=== PATIENT | female | born 1945 | race Caucasian/White ===

== ENCOUNTER 2018-11-11 08:41 | Inpatient (IN) | payer MEDICARE, BC ==
[~2018-11-11] VITALS: Ht 177.8 cm; Wt 72.7 kg
--- NOTE | ~2018-11-11 | CN ---
PATIENT NAME:JESSICA SINGER MEDICAL RECORD: [id number] : 49 LOCATION:.ER ADMIT DATE: ACCOUNT: [id number] CONSULTING PHYSICIAN: HENNY SERRANO MD REFERRING PHYSICIAN: SHWETA JIMENEZ MD DATE OF CONSULTATION: 11/11/2018 DIAGNOSES: 1. Angina. 2. Coronary artery disease. 3. Previous PTCA and stent. 4. Hypertension. 5. Hyperlipidemia. HISTORY OF PRESENT ILLNESS: Ms. Singer presents with a sudden onset of chest discomfort this morning. She has been having chest discomfort all morning. She continues to have chest discomfort just like that of her previous angina. She had a cardiac event in August in [place]. At that time, she underwent PTCA and stent of one vessel and they told her they tried to stent another vessel, but could not due to its small size. She had done well until this morning. Her chest pain is quite severe. PHYSICAL EXAMINATION: GENERAL APPEARANCE: Well-nourished, well-developed, appears stated age. Level of distress, comfortable. PSYCHIATRIC: Mental status, alert, normal affect. Orientation, oriented to time, place and person. EYES: Lids and conjunctiva, noninjected. No discharge, no pallor. ENT: Lips, teeth, gums, normal dentition. Oropharynx, no cyanosis, no pallor. NECK: Carotid arteries, bilateral normal upstroke, no bruits, no thrills. JUGULAR VEINS: No jugular venous pressure or distention. CERVICAL LYMPH NODES: Nontender, nonenlarged. THYROID: Not enlarged. Nontender. No nodules. LUNGS: Respiratory effort, unlabored. CHEST: Normal curvature. No thoracic deformity. No chest wall tenderness. Percussion, resonant. Auscultation, clear. No wheezes, no rales, no rhonchi. CARDIOVASCULAR: Precordial exam, nondisplaced. No heaves or pericardial thrills. Rate and rhythm, regular. Heart sounds, normal S1, normal S2. No S3, no gallop, no rub. Systolic murmur, not heard. Diastolic murmur, not heard. EXTREMITIES: No cyanosis, no edema. Peripheral pulses, full and equal in all extremities, except as noted. No bruits appreciated. ABDOMEN: Soft, nondistended. Normal aorta. No bruit. Nontender. No masses. Liver, nontender, no hepatomegaly. Spleen, nontender, no splenomegaly. MUSCULOSKELETAL: No joint tenderness. No joint swelling. No erythema. NEUROLOGICAL: Normal gait, normal strength, normal tone. SKIN: Warm and dry. OVERALL IMPRESSION: Unstable angina. We will proceed with coronary angiography. Further care depends upon findings of the angiography. TRANSINT:[id number] Voice Confirmation ID: [id number] DOCUMENT ID: [id number] CONSULT REPORT [id number] JESSICA SINGER JEFFREY MD CC: [id number] DICTATION DATE: 11/11/18 1126 DELI/BAKERY ASSOCIATE: 11/11/18 1134 [facility] [address] [id number]
--- NOTE | ~2018-11-11 | HEMODYNAMI ---
PATIENT:JESSICA MORELOS MEDICAL RECORD: [id number] : 49 LOCATION:[facility] DLuigiE09[facility]# [id number] ADMISSION DATE: 11/11/18 Generatedon:11/11/201815:05 Patient name: JESSICA MORELOS Patient #: [id number] SSN: : 1945 Date of study: 11/11/2018 Page: Of Hemodynamic Procedure Report Patient Data Patient Demographics Procedure consent was obtained First Name: JESSICA Gender: Female Last Name: TAMY : 1945 [facility] Initial: L Age: 73 year(s) Patient #: [id number] Race: Unknown Additional ID: [id number] Contact details Address: [address] [place] [address] State: [place] City: [place] Zip code: [address] Admission Admission Data Admission Date: 11/11/2018 Admission Time: 12:41 Room #: D.E09 Lab Results Lab Result Date: 11/11/2018 Lab Result Time: 0:00 Biochemistry Name Units Result Min Max BUN mg/dl 14 --(--*-)-- 7 18 Creatinine mg/dl 0.9 --(-*--)-- 0.6 1.3 CBC Name Units Result Min Max Hemoglobin g/dl 14 --(*---)-- 13.5 17.5 Procedure Procedure Types Cath Procedure Diagnostic Procedure LHC LHC w/Coronaries FFR/IVUS Intra-Coronary IVUS Initial Sedation Charges Moderate Sedation up to 15 minutes PCI Procedure Coronary Stent Coronary Stent Initial x2 Procedure Description Procedure Date Procedure Date: 11/11/2018 Procedure Start Time: 14:30 Procedure End Time: 14:57 Procedure Staff Name Function Derrick Joel RT Scrub Suha Ray RT Monitor Elver Samuels RN Generating Station Mechanic Gayathri Rodriguez RN Nurse Chan Dover MD Performing Physician Procedure Data Cath Procedure Fluoroscopy Diagnostic fluoroscopy Total fluoroscopy Time: 5.5 time: 5.5 min min Diagnostic fluoroscopy Total fluoroscopy dose: 602 dose: 602 mGy mGy Contrast Material Contrast Material Type Amount (ml) Isovue 300 170 Entry Location Entry Primary Successful Side Size Upsize Upsize Entry Closure Succes sful Closure Location (Fr) 1 (Fr) 2 (Fr) Remarks Device Remarks Femoral Right 5 Fr 6 Fr Exoseal artery Short Estimated blood loss: 5 ml Diagnostic catheters Device Type Used For End Catheter Placement MULTIPACK Pigtail 5 Fr LV Angiography catheter MULTIPACK JL 4.0 5Fr Left Coronary catheter Angiography MULTIPACK 3DRC 5Fr Right Coronary catheter Angiography Procedure Complications No complications Procedure Medications Medication Administration Route Dosage Oxygen etCO2 Nasal cannula 2 l/min Lidocaine 2% added to field 20 Heparin Flush Bag added to field 2 bags (1000units/500ml NS) 0.9% NaCl I.V. 100 ml/hr Versed I.V. 1 mg Fentanyl I.V. 50 mcg Heparin Bolus I.V. 4000 units Versed I.V. 1 mg Fentanyl I.V. 50 mcg Plavix P.O. 75 mg Hemodynamics Rest HGB: 14 (g/dl) Heart Rate: 55 (bpm) Pressure Samples Time Site Value (mmHg) Purpose Heart Use Rate(bpm) 14:34 LV 116/4,12 Snapshot 56 Snapshots Pre Cath Intra NCS Post Cath Vital Signs Time Heart Resp SPO2 etCO2 NIBP (mmHg) Rhythm Pain Sedation Rate (ipm) (%) (mmHg) Status Level (bpm) 14:11:29 54 17 98 0 138/69(116) NSR 0 (11) 10(A) , No pain 14:15:47 56 13 94 34.3 150/67(122) NSR 0 (11) 10(A) , No pain 14:20:58 53 14 98 36.5 141/60(114) NSR 0 (11) 10(A) , No pain 14:25:19 51 14 97 38.8 125/65(92) NSR 0 (11) 10(A) , No pain 14:29:33 52 24 96 38.1 128/61(97) NSR 0 (11) 10(A) , No pain 14:33:47 54 15 98 38.8 129/69(114) NSR 0 (11) 9(A) , No pain 14:38:01 61 14 98 38.8 145/69(124) NSR 0 (11) 9(A) , No pain 14:42:19 60 14 94 38 116/65(100) NSR 0 (11) 10(A) , No pain 14:46:29 64 12 95 36.5 127/63(109) NSR 0 (11) 9(A) , No pain 14:51:32 66 12 96 38.1 156/81(137) NSR 0 (11) 9(A) , No pain 14:55:54 61 21 96 36.6 165/75(117) NSR 0 (11) 10(A) , No pain Medications Time Medication Route Dose Verified Delivered Reason Notes Effectiveness by by 14:16:27 Oxygen etCO2 2 Chan Buffie used for Nasal l/min Stanislaw Rodriguez RN procedure cannula 14:16:33 Lidocaine 2% added 20ml Chan Chan for local to vial Stanislaw Dover MD anesthetic field 14:16:39 Heparin Flush added 2 Chan Chan used for Bag to bags Stanislaw Dover MD procedure (1000units/500ml field NS) 14:16:48 0.9% NaCl I.V. 100 Chan Buffie Per physician ml/hr Stanislaw Rodriguez RN 14:30:07 Fentanyl I.V. 50 Chan Zambranoie for sedation mcg Stanislaw Rodriguez RN 14:30:58 Versed I.V. 1 mg Chan Buffie for sedation Stanislaw Rodriguez RN 14:39:09 Heparin Bolus I.V. 4000 Chan Zambranoie for verif ied units Stanislaw Rodriguez RN anticoagulation with dr dover 14:40:48 Versed I.V. 1 mg Chan Zambranoie for sedation Stanislaw Rodriguez RN 14:40:52 Fentanyl I.V. 50 Chan Trinh for sedation mcg Stanislaw Rodriguez RN 14:56:13 Plavix P.O. 75 mg Chan Zambranoie for Stanislaw Rodriguez RN antiplatelet therapy Procedure Log Time Note 13:21:23 Elver Samuels RN sent for patient. Start room use. 13:21:24 Time tracking: Regular hours (M-F 7:00 - 5:00) 13:21:28 Plan of Care:Hemodynamics will remain stable., Cardiac rhythm will remain stable., Comfort level will be maintained., Respiratory function will remain adequate., Patient/ family verbilizes understanding of procedure., Procedure tolerated without complication., Recovers from procedure without complications.. 13:31: Lab Result : Hemoglobin 14 g/dl 13:: Lab Result : Creatinine 0.9 mg/dl :: Lab Result : BUN 14 mg/dl 14:04:12 Patient received from ED to CCL 2 Alert and oriented. Tansferred to table in Supine position. 14:04:13 Warm blankets applied, and lalo hugger turned on for patient comfort. 14:04:14 Correct patient and procedure confirmed by team. 14:04:15 Signed procedure consent form obtained from patient. 14:04:16 ECG and BP/O2 sat monitors applied to patient. 14:10:17 Vital chart was started 14:14:52 Baseline sample Acquired. 14:14:57 Rhythm: sinus rhythm 14:14:58 Full Disclosure recording started 14:15:03 H&P Date Dictated: 11/11/2018 New H&P dictated by physician.. 14:15:05 Pre-op teaching completed and patient verbalized understanding. 14:15:05 Pre-procedure instructions explained to patient. 14:15:06 Family in waiting room. 14:15:08 Patient NPO since Midnight. 14:15:09 Is the patient allergic to Iodine/contrast media? No. 14:15:10 Was the patient premedicated? No 14:15:11 Is patient on blood thinner?Yes 14:15:13 ACC The patient was administered the following blood thiners within the last 24 hours: ACCPlavix 14:16:27 Oxygen 2 l/min etCO2 Nasal cannula was administered by Gayathri Rodriguez RN; used for procedure; 14:16:33 Lidocaine 2% 20ml vial added to field was administered by Chan Dover MD; for local anesthetic; 14:16:39 Heparin Flush Bag (1000units/500ml NS) 2 bags added to field was administered by Chan Dover MD; used for procedure; 14:16:48 0.9% NaCl 100 ml/hr I.V. was administered by Gayathri Rodriguez RN; Per physician; 14:18:45 Patient diabetic? No. 14:18:48 Previous problem with sedation/anesthesia? No ? 14:18:51 Snore? Yes 14:18:52 Sleep apnea? No 14:18:53 Opens mouth fully? Yes 14:18:53 Deviated septum? No 14:18:55 Sticks out tongue? Yes 14:18:57 Airway obstruction? No ? 14:19:05 Dentures? No ? 14:19:09 Pre procedure: right dorsailis pedis pulse 2+ Normal; easily identifiable; not easily obliterated 14:19:12 Pre procedure: left dorsailis pedis pulse 2+ Normal; easily identifiable; not easily obliterated 14:19:15 Patient pain scale 0/10 ?. 14:19:26 IV patent on arrival in left antecubital with 0.9% NaCl at [facility]. 14:19:29 Lab results completed and on chart. 14:19:37 Right groin area was prepped with chlora-prep and draped in sterile fashion 14:19:38 Alarms reviewed by R. N. 14:19:39 Sharps counted by scrub and verified by R.N. 14:29:50 Physician arrived 14:29:51 Final Timeout: patient, procedure, and site verified with staff and physician. All members of the team are in agreement. 14::51 --------ALL STOP TIME OUT------ 14:29:53 Right groin site verified by team. 14:29:55 Physical assessment completed. ASA score P 2 - A patient with mild systemic disease as per Chan Dover MD. 14:29:59 Sedation plan: IV Moderate Sedation Medication:Versed, Fentanyl 14:30:07 Fentanyl 50 mcg I.V. was administered by Gayathri Rodriguez RN; for sedation; 14:30:29 Procedure started. 14:30:31 Local anesthetic to right femoral artery with Lidocaine 2% by Chan Dover MD.INITIAL ACCESS ONLY 14:30:38 Use device set Femoral Dx 14:30:39 Bag Decanter () opened to sterile field. 14:30:39 ACIST Syringe (44172) opened to sterile field. 14:30:40 Medline Cath Pack ([id number]) opened to sterile field. 14:30:41 DIAGNOSTIC WIRE .035 260cm J wire (505365) opened to sterile field. 14:30:42 ACIST Manifold (82418) opened to sterile field. 14:30:42 ACIST Hand Control (33384) opened to sterile field. 14:30:43 Tegaderm 4 x 4 (1626W) opened to sterile field. 14:30:43 DIAGNOSTIC Multipack 5Fr catheter set (FJ1053) opened to sterile field. 14:30:44 SHEATH 5FR [place] (RND698) opened to sterile field. 14:30:58 Versed 1 mg I.V. was administered by Gayathri Rodriguez RN; for sedation; 14:32:14 A 5 Fr sheath was inserted into the Right Femoral artery 14:32:27 A MULTIPACK Pigtail 5 Fr catheter was advanced over the wire and used for LV Angiography. 14:34:03 LV hemodynamics recorded. 14:34:04 LV gram done using GALVAN 14:34:07 Injector settings: Ml/sec: 5, Volume: 15, 14:34:13 EF : 40 % 14:34:33 Catheter removed. 14:34:37 A MULTIPACK JL 4.0 5Fr catheter was advanced over the wire and used for Left Coronary Angiography. 14:35:04 LCA angiography performed. 14:35:07 Injector settings: Ml/sec: 3, Volume: 6, 14:35:46 Catheter removed. 14:35:51 A MULTIPACK 3DRC 5Fr catheter was advanced over the wire and used for Right Coronary Angiography. 14:36:32 RCA angiography performed. 14:36:35 Injector settings: Ml/sec: 3, Volume: 6, 14:36:37 Catheter removed. 14:36:38 Proceeding to intervention. 14:37:17 GUIDE 6FR EBU 3.5 catheter ([id number]) opened to sterile field. 14:37:17 FIELDER XT 190cm guidewire ([id number]) opened to sterile field. 14:37:18 INFLATOR Merit BasixCompak (QU4235) opened to sterile field. 14:37:20 SHEATH 6FR [place] (NOB501) opened to sterile field. 14:38:28 Sheath upsized to a 6 Fr Short. 14:38:39 6 Fr ebu 3.5 guide catheter was inserted over the wire 14:38:45 fielder wire advanced. 14:38:46 Wire advanced across lesion. 14:39:09 Heparin Bolus 4000 units I.V. was administered by Gayathri Rodriguez RN; for anticoagulation; verified with dr dover 14:40:48 Versed 1 mg I.V. was administered by Gayathri Rodriguez RN; for sedation; 14:40:52 Fentanyl 50 mcg I.V. was administered by Gayathri Rodriguez RN; for sedation; 14:41:01 Place stent Inflation Number: 1 A LAVERNE RX 2.5 x 12 stent ([id number]) was prepped and advanced across the Mid LAD. The stent was deployed at 13 MURPHY for 0:10 (min:sec). 14:41:56 Stent catheter was removed intact over wire. 14:41:57 Wire removed. 14:43:46 Guide catheter removed. 14:43:54 Burson [place] Eagley[place] IVUS Catheter (22769N) opened to sterile field. 14:44:22 GUIDE 6FR AR 1.0 catheter ([id number]) opened to sterile field. 14:44:50 CHOICE PT Extra Support 182cm wire ([id number]) opened to sterile field. 14:44:57 6 Fr ar 1 guide catheter was inserted over the wire 14:45:03 choice pt wire advanced. 14:45:05 Wire advanced across lesion. 14:45:13 IVUS catheter advanced over wire. 14:47:08 IVUS pass to RCA lesion performed. 14:47:09 IVUS catheter removed over wire. 14:47:48 Place stent Inflation Number: 1 A LAVERNE RX 3.5 x 38 stent ([id number]) was prepped and advanced across the Mid RCA. The stent was deployed at 15 MURPHY for 0:10 (min:sec). 14:48:40 Stent catheter was removed intact over wire. 14:48:41 Guide catheter removed. 14:48:41 Wire removed. 14:49:28 EXOSEAL 6Fr (EX600) opened to sterile field. 14:49:42 Sheath removed intact; hemostasis achieved with Exoseal to the Right Femoral artery. 14:49:43 Procedure ended.(Physican Out) 14:49:59 Fluoroscopy time 05.50 minutes. 14:50:04 Fluoroscopy dose: 602 mGy 14:50:04 Flurop Dose total: 602 14:50:08 Contrast amount:Isovue 300 170ml. 14:50:13 Sharps counted by scrub and verified by R.N. 14:50:18 Post-op/insertion site Right Femoral artery dressed using a 4 x 4 and Tegaderm. 14:50:19 Insertion/operative site no bleeding no hematoma. 14:50:24 Post right femoral artery:stable 14:50:26 Post Procedure Pulses reassessed and unchanged 14:50:31 Post procedure rhythm: unchanged. 14:50:34 Estimated blood loss: 5 ml 14:50:35 Post procedure instruction explained to patient.Patient verbalizes understanding. 14:50:36 Patient needs reinforcement of post procedure teaching. 14:51:01 Procedure type changed to Cath procedure, Diagnostic procedure, LHC, LHC w/Coronaries, FFR/IVUS, Intra-Coronary IVUS Initial, Sedation Charges, Moderate Sedation up to 15 minutes, PCI procedure, Coronary Stent, Coronary Stent Initial x2 14:54:54 Procedure and supply charges have been captured, reviewed, submitted and are correct. 14:54:59 Procedure Complication : No complications 14:55:02 See physician's report for complete and final results. 14:55:02 Vital chart was stopped 14:56:13 Plavix 75 mg P.O. was administered by Gayathri Rodriguez RN; for antiplatelet therapy; 14:57:08 Report given to Pre/Post Procedure Room. 14:57:12 Patient transfered to Pre/Post Procedure Room with Stretcher. 14:57:14 Full Disclosure recording stopped 14:57:14 Procedure ended. 14:57:21 Femstop placed over the right femoral artery at 170 mmHg. Hemostasis achieved. 14:58:33 FEMSTOP Gold (R28644) opened to sterile field. 14:58:45 ACC-PCI Only Patient was given prescriptions, or instructed by Chan Dover MD to start/continue the following medications upon discharge: Plavix 14:58:48 End room use (Document Last) Intervention Summary Intervention Notes Time ActionType Lesion and Equipment Used Action# Pressure Duration Attributes 14:41:01 Place stent Mid LAD LAVERNE RX 2.5 x 1 13 00:10 12 stent ([id number]) 14:47:48 Place stent Mid RCA LAVERNE RX 3.5 x 1 15 00:10 38 stent ([id number]) Device Usage Item Name Manufacture Quantity Catalog Number Hospital Part Current M inimal Lot# / Charge Number Stock Stock Serial# Code ACIST Syringe Acist 1 90189 583811 919707 628632 2 0 () Shots Inc Bag Decanter Microtek 1 250676 34101 107648 5 (2002S) Medical Inc. Medline Cath Medline 1 [id number] 163978 16850 623812 5 Pack ([id number]) DIAGNOSTIC [place] 1 381200 299046 625304 418739 3 0 WIRE .035 260cm J wire (881287) ACIST Hand Acist 1 67322 993468 958392 906425 5 Control Medical (35290) Systems Inc ACIST Manifold Acist 1 21656 748591 410865 876779 5 (03523) Medical Systems Inc DIAGNOSTIC Cardinal 1 VL7497 962191 79497 148018 3 0 Multipack 5Fr Health catheter set (XA4270) Tegaderm 4 x 4 3M 1 1626W 130605 111470 221937 5 (1626W) SHEATH 5FR Terumo 1 [id number] 671332 369374 271435 5 [place] (WQS679) MULTIPACK Cardinal 1 331727 5 Pigtail 5 Fr Health catheter MULTIPACK JL Cardinal 1 993103 5 4.0 5Fr Health catheter MULTIPACK 3DRC Cardinal 1 654688 5 5Fr catheter Health FIELDER XT Nixon 1 [id number] 064454 59115 613250 5 190cm Vascular guidewire ([id number]) GUIDE 6FR EBU Medtronic 1 [id number] 756520 36221 646951 3 3.5 catheter ([id number]) INFLATOR Merit Merit 1 QT0520 479937 052252 954692 1 5 [employer] Medical (IR7044) SHEATH 6FR Terumo 1 WJS677 212117 825264 313414 4 0 [place] (QTX820) LAVERNE RX 2.5 x Medtronic 1 [id number] 742976 9366426 337945 5 [id number] 12 stent ([id number]) Burson Burson 1 [id number] 896054 369692 268928 8 [place] Eagleye IVUS Catheter (29449R) GUIDE 6FR AR Medtronic 1 [id number] 559573 71009 703092 1 1.0 catheter (IM2OG31) CHOICE PT [place] 1 [id number] 981885 111899 845532 5 Extra Support Scientific 182cm wire ([id number]) LAVERNE RX 3.5 x Medtronic 1 [id number] 233831 6583890 604574 5 [id number] 38 stent ([id number]) EXOSEAL 6Fr Cardinal 1 EX600 569372 410141 274475 1 0 (EX600) Health FEMSTOP Gold [place] 1 N61301 318988 273886 643921 5 ([id number]) Signature Audit [place] Stage Time Signature Unsigned Intra-Procedure 11/11/2018 Suha Ray RT(R) 3:03:39 PM RT(R) 11/11/2018 3:04:57 PM Intra-Procedure 11/11/2018 Suha Ray 3:05:12 PM RT(R) Signatures Monitor : Suha Ray RT Signature : Date : Time : [address] [place] [address]
--- NOTE | ~2018-11-11 | OP ---
PATIENT NAME: JESSICA MORELOS MEDICAL RECORD: [id number] :49 LOCATION:[facility] ADMISSION DATE:11/11/18 SURGEON: HENNY SERRANO MD DATE OF OPERATION: 11/11/2018 DATE OF SERVICE: 11/11/2017 PROCEDURES: 1. PTCA stent RCA. 2. PTCA stent LAD. 3. Intravascular ultrasound. 4. Left heart catheterization. 5. Selective coronary angiography. 6. Left ventriculogram. INDICATION: Angina and coronary artery disease. PROCEDURE IN DETAIL: After informed consent was obtained and after a detailed description of the risks, benefits as well as alternative therapies, the patient elected to proceed with angiogram and angioplasty. The right femoral area was prepped and draped in normal sterile fashion. Right femoral artery was cannulated via a modified Seldinger technique with placement of 6-Czech sheath. All catheters exchanged through this sheath. FINDINGS: Left ventriculogram was performed in standard 30-degree GALVAN view, reveals global hypokinesis throughout all segments. Overall ejection fraction in the 40% range. SELECTIVE CORONARY ANGIOGRAPHY: 1. Left main showed no significant angiographic disease. 2. Left anterior descending has 75% stenosis in the mid vessel. 3. Left circumflex is a extremely small ramus intermedius that has greater than 90% stenosis of the circumflex itself, has no significant disease. 4. The right coronary has a previously placed stent. Intravascular ultrasound reveals that there is greater than 80% stenosis before and after the previously placed stent. PTCA STENT OF THE RCA: The stent covering both areas of stenosis is a 3.5 x 38-mm Ever. Result was 0% residual stenosis. PTCA STENT OF THE LAD: The stent used was a 2.75 x 12 mm [place]. Result was 0% residual stenosis. OVERALL IMPRESSION: Successful percutaneous transluminal coronary angioplasty stent of the left anterior descending and circumflex, both going from 75% to 80% initial stenosis to 0% residual. TRANSINT:[id number] Voice Confirmation ID: [id number] DOCUMENT ID: [id number] OPERATIVE REPORT [id number] JESSICA MORELOS HENNY SERRANO MD CC: [id number] DICTATION DATE: 11/11/18 1455 BATTERYMAN: 11/11/182123 DIS IN 11/11/18 [address] [place] [address]
[2018-11-11 08:43] VITALS: BP 136/71; Ht 177.8 cm; Wt 72.7 kg
[2018-11-11] MEDS ORDERED: METOPROLOL TART25 MG PO (08:45)
[2018-11-11] MEDS ORDERED: ASPIRIN EC81 M1 PO (08:45)
[2018-11-11] MEDS ORDERED: LIPITOR80 MG PO (08:45)
[2018-11-11] MEDS ORDERED: OMEPRAZOLE20 M1 PO (08:46)
[2018-11-11] MEDS ORDERED: DONEPEZIL HCL10 MG PO (08:46)
[2018-11-11] MEDS ORDERED: PLAVIX75 MG PO (08:46)
[2018-11-11] MEDS ORDERED: NAMENDA XR28 MG PO (08:46)
[2018-11-11] MEDS ORDERED: EFFEXOR XR37.5 MG PO (08:46)
[2018-11-11 09:31] LABS: BASOPHILS 0.8 % (0-2); EOSINOPHILS 4.2 % (0-7); HEMATOCRIT 42.2 % (36.0-48.0); LYMPHOCYTES 34.1 % (15-50); MCH 28.6 pg (26.0-34.0); MCHC 33.2 g/dL (31.0-37.0); MCV 86.3 fL (80.0-100.0); MEAN PLATELET VOLUME 9.3 fL (7.4-10.4); MONOCYTES 7.2 % (2-11); NEUTROPHILS 53.7 % (40-80); PLATELET COUNT 186 10x3/uL (130-400); RBC 4.89 10x6/uL (4.00-5.40); RDW 14.4 % (11.5-14.5); WBC 3.6 10x3/uL (4.8-10.8)
[2018-11-11 09:41] LABS: ALBUMIN 3.6 g/dL (3.4-5.0); ALKALINE PHOSPHATASE 116 U/L (46-116); ALT (SGPT) 43 U/L (10-68); BILIRUBIN - TOTAL 0.52 mg/dL (0.2-1.3); CALC OSMOLALITY 279 mosm/kg (275-300); CALCIUM 9.6 mg/dL (8.5-10.1); CHLORIDE - SERUM 103 mmol/L (98-107); CREATININE - SERUM 0.9 mg/dL (0.6-1.3); GLUCOSE 120 mg/dL (74-106); POTASSIUM - SERUM 3.7 mmol/L (3.5-5.1); PROTEIN - SERUM 7.7 g/dL (6.4-8.2); SODIUM 139 mmol/L (136-145); UREA NITROGEN 14 mg/dL (7-18); eGFR NON AFRICAN AMERICAN 65 mL/min (90-120)
[2018-11-11 09:47] LABS: CREATINE KINASE 76 UL (21-215); MAGNESIUM - SERUM 2.2 mg/dL (1.8-2.4); TROPONIN-I < 0.017 ng/mL (0.000-0.060)
[2018-11-11 10:08] LABS: CKMB 0.4 U/L (0.0-3.6)
--- NOTE | 2018-11-11 15:53 | NUR ---
1530 PT SLEEPING, RESP WTIH EASE ON O2 AT 2LPM VIA NC. FEMSTOP INTACT WITH NO BLEEDING OR HEMATOMA NOTED, PRESSURE AT 180. PEDAL PULSES PALPABLE. HOB IS FLAT, VSS. CALL LIGHT IN REACH.
--- NOTE | 2018-11-11 16:02 | NUR ---
MULTIPLE VISITORS IN ROOM PT IS DROWSY, DENIES ANY C/O. DR SERRANO HAS ROUNDED TWICE TO SPEAK WITH FAMILY. FEMSTOP INTACT AT 180. NO BLEEDING OR HEMATOMA NOTED. PEDAL PULSES PALPABLE. HOB IS FLAT, VSS.
--- NOTE | 2018-11-11 16:25 | NUR ---
1610 FEMSTOP PRESSURE WEANED BY 20, NO BLEEDING OR HEMATOMA NOTED. 1625 FEMSTOP PRESSURE WEANED BY 20 WITH NO BLEEDING OR HEMATOMA NOTED. PULSES PALPABLE. HOB IS FLAT. PT DENIES ANY C/O. SINUS JOSE LUIS AT 57, SAT IS 98%, BP IS 137/70.
--- NOTE | 2018-11-11 16:52 | NUR ---
1640 FEMSTOP WEANED BY 20, NO BLEEDING OR HEMATOMA NOTED AT SITE. PEDAL PULSES PALPABLE. PT C/O DISCOMFORT LAYING FLAT TO RIGHT HIP AREA, ORDER RECEIVED FOR NORCO 5MG PO X1.
--- NOTE | 2018-11-11 17:30 | NUR ---
1700 FEMSTOP REMOVED AND 4X4, TEGADERM PLACED TO SITE. NO BLEEDING OR HEMATOMA NOTED. PEDAL PULSES PALPABLE. PT STATES REMOVING FEMSTOP HAS RELIEVED PAIN AT THIS TIME. 1725 DRESSING TO RIGHT GROIN REMAINS CDI, PULSES PALPABLE. PT DENIES ANY C/O PAIN OR NAUSEA. VSS. HOB IS FLAT.
--- NOTE | 2018-11-11 18:30 | NUR ---
1800 HOB ELEVATED 30 DEGREES, DRESSING CDI TO RIGHT GROIN, AREA IS SOFT AND NONTENDER. PEDAL PULSES PALPABLE. VSS, PO FLUIDS SERVED. 182 DRESSING REMAINS CDI, PULSES PALPABLE. HOB FULLY ELEVATED. PT DENIES ANY C/O FOZIA SANDWICH AND PO FLUIDS WITH NO C/O NAUSEA.
--- NOTE | 2018-11-11 19:07 | NUR ---
1840 DRESSING REMAINS CDI TO RIGHT GROIN. PEDAL PULSES PALPABLE. IV DC'D WITH CATH INTACT, DC INSTRUCTIONS REVIEWED WITH PT AND WHO VERBALIZE UNDERSTANDING.
--- NOTE | 2018-11-11 19:08 | NUR ---
0 ASSISTED PT WITH DRESSING FOR DC TO HOME. DRESSING CDI. 1899 ASSISTED PT TO THE BATHROOM VIA WC, PT VOIDED QS. 1904 ESCORTED PT TO PRIVATE AUTO VIA WC, WTIH DRIVING HER HOME. PT IS ALERT AND DENIES ANY C/O UPON DC. HAS ALL PERSONAL BELONGINGS AND DC INSTRUCTIONS.
== END 2018-11-11 19:05 | disposition home or self-care (01) | DRG 247 ==
LOC: D.ER 08:41 → D.EDHOLD 12:41 → D.CLR 15:07
PROVIDERS: Family Medicine; ADMIT Internal Medicine Interventional Cardiology
PROC: 4A023N7 Measurement of Cardiac Sampling and Pressure, Left Heart, Percutaneous Approach (ICD-10-PCS; 2018-11-11)
PROC: B2111ZZ Fluoroscopy of Multiple Coronary Arteries using Low Osmolar Contrast (ICD-10-PCS; 2018-11-11)
PROC: B2151ZZ Fluoroscopy of Left Heart using Low Osmolar Contrast (ICD-10-PCS; 2018-11-11)
PROC: 027135Z Dilation of Coronary Artery, Two Arteries with Two Drug-eluting Intraluminal Devices, Percutaneous Approach (ICD-10-PCS; principal; 2018-11-11 13:21)
PROC: B240ZZ3 Ultrasonography of Single Coronary Artery, Intravascular (ICD-10-PCS; 2018-11-11 13:21)
DX: I25.110 Atherosclerotic heart disease of native coronary artery with unstable angina pectoris (principal); I10 Essential (primary) hypertension; E78.5 Hyperlipidemia, unspecified; F03.90 Unspecified dementia, unspecified severity, without behavioral disturbance, psychotic disturbance, mood disturbance, and anxiety

== ENCOUNTER 2018-11-15 12:23 | Observation (INO) | payer MEDICARE, BC ==
[~2018-11-15] VITALS: Ht 177.8 cm; Wt 69.5 kg
--- NOTE | ~2018-11-15 | HEMODYNAMI ---
PATIENT:JESSICA MORELOS MEDICAL RECORD: [id number] : 49 LOCATION:[address] [id number] ADMISSION DATE: 11/15/18 Generatedon:11/16/201811:39 Patient name: JESSICA MORELOS Patient #: [id number] SSN: : 1945 Date of study: 11/16/2018 Page: Of Hemodynamic Procedure Report Patient Data Patient Demographics Procedure consent was obtained First Name: JESSICA Gender: Female Last Name: TAMY : 1945 Middle Initial: L Age: 73 year(s) Patient #: [id number] Race: Unknown Additional ID: [id number] Contact details Address: [address] [place] [address] State: [place] City: [place] Zip code: [address] Past Medical History Allergies: No known allergies Admission Admission Data Admission Date: 11/15/2018 Admission Time: 15:06 Room #: D2124 Lab Results Lab Result Date: 11/11/2018 Lab Result Time: 0:00 Biochemistry Name Units Result Min Max BUN mg/dl 14 --(--*-)-- 7 18 Creatinine mg/dl 0.9 --(-*--)-- 0.6 1.3 CBC Name Units Result Min Max Hemoglobin g/dl 14 --(*---)-- 13.5 17.5 Procedure Procedure Types Cath Procedure Diagnostic Procedure [facility] w/Coronaries Sedation Charges Moderate Sedation up to 15 minutes Procedure Description Procedure Date Procedure Date: 11/16/2018 Procedure Start Time: 11:21 Procedure End Time: 11:36 Procedure Staff Name Function Elver Samuels RN Mucker Cofferdam Olivia Vick RT Monitor Sharon Arroyo RT Scrub Gayathri Rodriguez RN Nurse Juan Francisco Cleveland MD Performing Physician Procedure Data Cath Procedure Fluoroscopy Diagnostic fluoroscopy Total fluoroscopy Time: 1.9 time: 1.9 min min Diagnostic fluoroscopy Total fluoroscopy dose: 361 dose: 361 mGy mGy Contrast Material Contrast Material Type Amount (ml) Isovue 300 46 Entry Location Entry Primary Successful Side Size Upsize Upsize Entry Closure Succes sful Closure Location (Fr) 1 (Fr) 2 (Fr) Remarks Device Remarks Femoral Left 5 Fr Exoseal artery Estimated blood loss: 10 ml Diagnostic catheters Device Type Used For End Catheter Placement MULTIPACK JL 4.0 5Fr Procedure catheter MULTIPACK 3DRC 5Fr Procedure catheter MULTIPACK Pigtail 5 Fr Procedure catheter Procedure Complications No complications Procedure Medications Medication Administration Route Dosage Oxygen etCO2 Nasal cannula 2 l/min Lidocaine 2% added to field 20 Heparin Flush Bag added to field 2 bags (1000units/500ml NS) 0.9% NaCl I.V. 100 ml/hr Versed I.V. 1 mg Fentanyl I.V. 50 mcg Hemodynamics Rest HGB: 14 (g/dl) Heart Rate: 64 (bpm) Pressure Samples Time Site Value (mmHg) Purpose Heart Use Rate(bpm) 11:34 LV 128/-5,10 Snapshot 69 Gradients Valve Time Site Site Mean SEP/DFP Peak To Heart Use 1 2 (mmHg) (sec/min) Peak Rate (mmHg) (bpm) Aortic 11:34 LV AO 73 Snapshots Pre Cath Intra NCS Post Cath Vital Signs Time Heart Resp SPO2 etCO2 NIBP (mmHg) Rhythm Pain Sedation Rate (ipm) (%) (mmHg) Status Level (bpm) 11:06:41 65 33 94 33 127/79(104) NSR 0 (11) 10(A) , No pain 11:10:48 70 16 95 32.1 126/69(102) NSR 0 (11) 10(A) , No pain 11:14:56 69 21 98 32 116/71(110) NSR 0 (11) 10(A) , No pain 11:19:00 76 14 98 32 123/72(93) NSR 0 (11) 10(A) , No pain 11:23:08 67 13 98 34.3 135/63(91) NSR 0 (11) 10(A) , No pain 11:27:20 68 12 98 23.6 137/63(105) NSR 0 (11) 9(A) , No pain 11:31:32 73 14 98 36.6 138/67(106) NSR 0 (11) 9(A) , No pain 11:35:46 71 14 98 35.8 130/64(94) NSR 0 (11) 10(A) , No pain Medications Time Medication Route Dose Verified Delivered Reason Notes Eff ectiveness by by 11:13:48 Oxygen etCO2 2 Juan Francisco Buffie used for Nasal l/min Cristofer Rodriguez RN procedure cannula 11:13:54 Lidocaine 2% added 20ml Juan Francisco Juan Francisco for local to vial Cristofer Cleveland MD anesthetic field 11:14:00 Heparin Flush added 2 Juan Francisco Juan Francisco used for Bag to bags Cristofer Cleveland MD procedure (1000units/500ml field NS) 11:14:08 0.9% NaCl I.V. 100 Juan Francisco Buffie Per ml/hr Cristofer Rodriguez RN physician 11:22:08 Versed I.V. 1 mg Juan Francisco Buffie for Cristofer Rodriguez RN sedation 11:22:13 Fentanyl I.V. 50 Juan Francisco Buffie for mcg Cristofer Rodriguez RN sedation Procedure Log Time Note 10:47:13 Signed procedure consent form obtained from patient. 10:47:14 Diagnostic Cath status Elective 10:47:38 Elver Samuels RN sent for patient. Start room use. 10:58:16 Time tracking: Regular hours (M-F 7:00 - 5:00) 10:58:19 Plan of Care:Hemodynamics will remain stable., Cardiac rhythm will remain stable., Comfort level will be maintained., Respiratory function will remain adequate., Patient/ family verbilizes understanding of procedure., Procedure tolerated without complication., Recovers from procedure without complications.. 10:58:25 Patient received from Med II to CCL 1 Alert and oriented. Tansferred to table in Supine position. 10:58:26 Warm blankets applied, and lalo hugger turned on for patient comfort. 10:58:26 Correct patient and procedure confirmed by team. 10:58:28 ECG and BP/O2 sat monitors applied to patient. 11:05:30 Vital chart was started 11:05:47 Baseline sample Acquired. 11:06:06 Rhythm: sinus rhythm 11:13:48 Oxygen 2 l/min etCO2 Nasal cannula was administered by Gayathri Rodriguez RN; used for procedure; 11:13:54 Lidocaine 2% 20ml vial added to field was administered by Juan Francisco Cleveland MD; for local anesthetic; 11:14:00 Heparin Flush Bag (1000units/500ml NS) 2 bags added to field was administered by Juan Francisco Cleveland MD; used for procedure; 11:14:08 0.9% NaCl 100 ml/hr I.V. was administered by Gayathri Rodriugez RN; Per physician; 11:14:13 Baseline sample Acquired. 11:14:16 Full Disclosure recording started 11:14:27 H&P Date Dictated: 11/11/2018 Within 30 days and on chart., H&P Addendum completed by physician on day of procedure. (MUST COMPLETE FOR ALL OUTPATIENTS). 11:14:29 Pre-procedure instructions explained to patient. 11:14:31 Family in waiting room. 11:14:32 Patient NPO since Midnight. 11:14:43 Patient allergic to No known allergies 11:14:46 Is the patient allergic to Iodine/contrast media? No. 11:14:47 Was the patient premedicated? Yes 11:14:56 Is patient on blood thinner?Yes 11:14:59 ACC The patient was administered the following blood thiners within the last 24 hours: ACCPlavix 11:16:49 Patient diabetic? No. 11:16:55 Snore? No 11:16:57 Sleep apnea? No 11:20:59 Patient pain scale 0/10 ?. 11:21:09 IV patent on arrival in left hand with 0.9% NaCl at [facility]. 11:21:13 Lab results completed and on chart. 11:21:19 Left groin area was prepped with chlora-prep and draped in sterile fashion 11:21:21 Alarms reviewed by R. N. 11:21:22 Sharps counted by scrub and verified by R.N. 11:21:23 Physician arrived 11:21:23 --------ALL STOP TIME OUT------ 11:21:24 Final Timeout: patient, procedure, and site verified with staff and physician. All members of the team are in agreement. 11:21:26 Left groin site verified by team. 11:21:31 Physical assessment completed. ASA score P 2 - A patient with mild systemic disease as per Juan Francisco Cleveland MD. 11:21:35 Sedation plan: IV Moderate Sedation Medication:Versed, Fentanyl 11:21:39 Procedure started. 11:21:41 Use device set Femoral Dx 11:21:43 ACIST Syringe (83469) opened to sterile field. 11:21:43 Bag Decanter (2002S) opened to sterile field. 11:21:44 Medline Cath Pack ([id number]) opened to sterile field. 11:21:44 DIAGNOSTIC WIRE .035 260cm J wire (603526) opened to sterile field. 11:21:45 ACIST Hand Control (37436) opened to sterile field. 11:21:46 ACIST Manifold (02420) opened to sterile field. 11:21:46 DIAGNOSTIC Multipack 5Fr catheter set (GM2751) opened to sterile field. 11:21:49 SHEATH 5FR Avalon (SMR067) opened to sterile field. 11:21:56 Local anesthetic to left femerol artery with Lidocaine 2% by Juan Francisco Cleveland MD.INITIAL ACCESS ONLY 11:22:08 Versed 1 mg I.V. was administered by Gayathri Rodriguez RN; for sedation; 11:22:13 Fentanyl 50 mcg I.V. was administered by Gayathri Rodriguez RN; for sedation; 11:23:00 A 5 Fr sheath was inserted into the Left Femoral artery 11:23:52 A MULTIPACK JL 4.0 5Fr catheter was advanced over the wire and used for Procedure. 11:24:17 LCA angiography performed. 11:28:15 Catheter removed. 11:28:22 A MULTIPACK 3DRC 5Fr catheter was advanced over the wire and used for Procedure. 11:30:51 RCA angiography performed. 11:30:53 Catheter removed. 11:33:41 A MULTIPACK Pigtail 5 Fr catheter was advanced over the wire and used for Procedure. 11:33:52 EXOSEAL 5Fr (EX500) opened to sterile field. 11:34:36 EF : 55 % 11:34:53 Catheter removed. 11:35:05 Sheath removed intact; hemostasis achieved with Exoseal to the Left Femoral artery. 11:35:08 Procedure ended.(Physican Out) 11:35:30 Fluoroscopy time 01.90 minutes. 11:35:35 Fluoroscopy dose: 361 mGy 11:35:35 Flurop Dose total: 361 11:35:39 Contrast amount:Isovue 300 46ml. 11:35:41 Sharps counted by scrub and verified by R.N. 11:35:43 Insertion/operative site no bleeding no hematoma. 11:35:48 Post left femerol artery:stable 11:35:52 Post Procedure Pulses reassessed and unchanged 11:36:00 Post-procedure physical assessment completed. ASA score P 2 - A patient with mild systemic disease as per Juan Francisco Cleveland MD. 11:36:03 Post procedure rhythm: unchanged. 11:36:05 Estimated blood loss: 10 ml 11:36:09 Post procedure instruction explained to patient.Patient verbalizes understanding. 11:36:24 Procedure type changed to Cath procedure, Diagnostic procedure, LHC, LHC w/Coronaries, Sedation Charges, Moderate Sedation up to 15 minutes 11:36:25 Procedure and supply charges have been captured, reviewed, submitted and are correct. 11:36:31 Procedure Complication : No complications 11:36:34 Vital chart was stopped 11:36:35 See physician's report for complete and final results. 11:36:36 Report given to Pre/Post Procedure Room. 11:36:40 Patient transfered to Pre/Post Procedure Room with Stretcher. 11:36:42 Procedure ended. 11:36:42 Full Disclosure recording stopped 11:36:46 End room use (Document Last) Device Usage Item Name Manufacture Quantity Catalog Hospital Part Current Minimal L ot# / Number Charge Number Stock Stock Serial# Code ACIST Acist 1 97875 105288 062301 160295 20 Syringe Medical (91166) Systems Inc Bag Microtek 1 545789 29994 743492 5 Decanter Medical Inc. () Medline Medline 1 [id number] 935270 53871 359011 5 Cath Pack ([id number]) DIAGNOSTIC [place] 1 394295 962425 914393 900124 30 WIRE .035 260cm J wire (752847) ACIST Hand Acist 1 17417 042928 941414 788483 5 Control Medical (38082) Systems Inc ACIST Acist 1 64247 511544 119196 706778 5 Manifold Medical (83823) Systems Inc DIAGNOSTIC Cardinal 1 KD3768 974935 07534 180972 30 Multipack Health 5Fr catheter set (EL7994) SHEATH 5FR Terumo 1 [id number] 387562 395558 453636 5 Avalon (IMI426) MULTIPACK Cardinal 1 070868 5 JL 4.0 5Fr Health catheter MULTIPACK Cardinal 1 445040 5 3DRC 5Fr Health catheter MULTIPACK Cardinal 1 829827 5 Pigtail 5 Health Fr catheter EXOSEAL 5Fr Cardinal 1 EX500 904785 598675 079254 10 (EX500) Health Signature Audit [place] Stage Time Signature Unsigned Intra-Procedure 11/16/2018 Olivia Vick 11:39:56 AM RT(R) Signatures Monitor : Olivia Vick Signature : RT Date : Time : [address] [place] [address]
[~2018-11-15 12:23] MED LIST: ASPIRIN EC81 M1 PO; DONEPEZIL HCL10 MG PO; EFFEXOR XR37.5 MG PO; LIPITOR80 MG PO; METOPROLOL TART25 MG PO; NAMENDA XR28 MG PO; OMEPRAZOLE20 M1 PO; PLAVIX75 MG PO
[2018-11-15 13:02] LABS: ALBUMIN 3.5 g/dL (3.4-5.0); ALKALINE PHOSPHATASE 110 U/L (46-116); ALT (SGPT) 48 U/L (10-68); APTT 29.2 SECONDS (22.8-39.4); BILIRUBIN - TOTAL 0.52 mg/dL (0.2-1.3); CALC OSMOLALITY 275 mosm/kg (275-300); CARBON DIOXIDE 23.6 mmol/L (21.0-32.0); CHLORIDE - SERUM 102 mmol/L (98-107); CREATININE - SERUM 0.9 mg/dL (0.6-1.3); GLUCOSE 95 mg/dL (74-106); INR 1.03 (0.85-1.17); POTASSIUM - SERUM 3.8 mmol/L (3.5-5.1); PROTEIN - SERUM 7.6 g/dL (6.4-8.2); SODIUM 138 mmol/L (136-145); UREA NITROGEN 13 mg/dL (7-18); eGFR NON AFRICAN AMERICAN 65 mL/min (90-120)
[2018-11-15 13:16] LABS: BASOPHILS 0.4 % (0-2); EOSINOPHILS 2.8 % (0-7); HEMATOCRIT 37.5 % (36.0-48.0); HEMOGLOBIN 12.4 g/dL (12-16); IMMATURE GRANULOCYTES 0.4 % (0-5); LYMPHOCYTES 31.5 % (15-50); MCH 28.7 pg (26.0-34.0); MCHC 33.1 g/dL (31.0-37.0); MCV 86.8 fL (80.0-100.0); MEAN PLATELET VOLUME 9.2 fL (7.4-10.4); MONOCYTES 13.9 % (2-11); PLATELET COUNT 187 10x3/uL (130-400); RBC 4.32 10x6/uL (4.00-5.40); RDW 14.4 % (11.5-14.5); WBC 4.7 10x3/uL (4.8-10.8)
[2018-11-15 13:18] LABS: CKMB 1.1 U/L (0.0-3.6); CREATINE KINASE 140 UL (21-215); LIPASE 442 U/L (73-393)
[2018-11-15 13:23] LABS: TROPONIN-I 0.225 ng/mL (0.000-0.060)
[2018-11-15 16:48] VITALS: BP 139/72; Ht 177.8 cm; Wt 69.5 kg
--- NOTE | 2018-11-15 16:57 | NUR ---
ASSESSMENT COMPLETE PT AAOX4 RESP UNLABORED NAD NOTED DENIES ANY CHEST PAIN OR DISCOMFORT AT THIS TIME
--- NOTE | 2018-11-15 18:27 | NUR ---
FAMILY AT BEDSIDE. TELEMERTY SHOWS SR. NO COMPLAINT OF PAIN. SR UP WITH CALL LIGHT IN REACH
[2018-11-15 20:40] VITALS: BP 109/61
[2018-11-16 00:56] VITALS: BP 105/55
--- NOTE | 2018-11-16 03:44 | NUR ---
IN BED RESTING WITH EYES CLOSED, RESPERATIONS UNLABORED, NO S/S DISTRESS NOTED.
--- NOTE | 2018-11-16 04:29 | NUR ---
RN NOTES. PATIENT RESTING COMFORTABLY IN BED. RESPIRATIONS ARE EVEN AND UNLABORED. NO S/S OF DISTRESS. NO C/O PAIN. CALL LIGHT WITHIN REACH. WILL CPOC.
[2018-11-16 06:09] VITALS: BP 111/63
[2018-11-16 07:00] VITALS: BP 103/58
--- NOTE | 2018-11-16 09:54 | NUR ---
NO NEEDS VOICED AT THIS TIME. AT BS. CALL LIGHT IN REACH. WILL MONITOR.
--- NOTE | 2018-11-16 10:20 | NUR ---
TO LINER INSERTER PER BED
[2018-11-16 11:00] VITALS: BP 124/63
[2018-11-16 11:18] LABS: ANION GAP 16.5 mmol/L (8-16); CALCIUM 8.2 mg/dL (8.5-10.1); CARBON DIOXIDE 22.6 mmol/L (21.0-32.0); POTASSIUM - SERUM 4.1 mmol/L (3.5-5.1)
[2018-11-16 11:21] LABS: CREATININE - SERUM 1.2 mg/dL (0.6-1.3)
[2018-11-16] MEDS ORDERED: RANEXA500 MG PO (12:04)
--- NOTE | 2018-11-16 12:15 | NUR ---
FAMILY AT BEDSIDE. BROUGHT UP FROM MED [address] MAE TO ROUND AND SPEAK WITH THEM. LEFT GROIN DRESSING C/D/I. NO S/S OF HEMATOMA NOTED. BRUISING NOTED TO LEFT GROIN FROM HEMATOMA LAST WEEK WITH [facility]. BILATERAL PEDAL PULSES PALPABLE.
--- NOTE | 2018-11-16 12:23 | NUR ---
DRESSING TO L/GROIN CDI NO BLEEDING OR HEMATOMA NOTED. HR 63 BP 108/63 CHEST PAIN IS DENIED
[2018-11-16 12:24] LABS: BASOPHILS 0.3 % (0-2); EOSINOPHILS 1.1 % (0-7); HEMATOCRIT 35.5 % (36.0-48.0); HEMOGLOBIN 11.6 g/dL (12-16); IMMATURE GRANULOCYTES 0.9 % (0-5); LYMPHOCYTES 22.9 % (15-50); MCH 28.9 pg (26.0-34.0); MCHC 32.7 g/dL (31.0-37.0); MCV 88.5 fL (80.0-100.0); MEAN PLATELET VOLUME 8.3 fL (7.4-10.4); MONOCYTES 8.9 % (2-11); NEUTROPHILS 65.9 % (40-80); RBC 4.01 10x6/uL (4.00-5.40); RDW 14.1 % (11.5-14.5)
[2018-11-16 12:25] LABS: PLATELET COUNT 320 10x3/uL (130-400); WBC 12.7 10x3/uL (4.8-10.8)
--- NOTE | 2018-11-16 12:39 | NUR ---
RESTING QUIETLY WITH NO DISTRESS NOTED. DRESSING TO L/GROIN REMAINS CDI. CALL LIGHT IS IN REACH WITH FAMILY AT BEDSIDE
--- NOTE | 2018-11-16 12:54 | NUR ---
DRESSING TO L/GROIN CDI WITH CHEST PAIN DENIED VSS. FAMILY ASSISTING WITH SANDWICH
--- NOTE | 2018-11-16 13:05 | NUR ---
HEAD OF BED INC TO 30 DEGREES. LEFT GROIN DRESSING C/D/I. NO S/S OF HEMATOMA NOTED. LEFT PEDAL PULSE PALPABLE.
--- NOTE | 2018-11-16 13:19 | NUR ---
LEFT HAND PIV D/C'D WITH CATH TIP INTACT. PT TOLERATED WELL. LEFT GROIN DRESSING C/D/I. NO S/S OF HEMATOMA NOTED. PT INSTRUCTED TO DRESS SELF. FAMILY AT BEDSIDE.
[2018-11-16] MEDS ORDERED: NITROSTAT0.4 MG SL (13:32)
--- NOTE | 2018-11-16 13:50 | NUR ---
DISCUSSED DISCHARGE INSTRUCTIONS WITH PT AND PT'S FAMILY. THEY VOICED UNDERSTANDING. LEFT GROIN DRESSING C/D/I. NO S/S OF HEMATOMA.
--- NOTE | 2018-11-16 14:00 | NUR ---
PT TAKEN TO VEHICLE BY WHEELCHAIR. NO S/S OF DISTRESS NOTED. ALL BELONGINGS AND PAPERWORK IN HAND.
== END 2018-11-16 14:00 | disposition home or self-care (01) ==
LOC: D.ER 12:23 → OBSVTIME 15:06 → D.M2 15:06 → D.EDHOLD 15:06 → D.M2 15:42 → D.CLR 11-16 11:43
PROVIDERS: Family Medicine; ADMIT Internal Medicine Cardiovascular Disease
DX: I25.110 Atherosclerotic heart disease of native coronary artery with unstable angina pectoris (principal); I10 Essential (primary) hypertension

== ENCOUNTER → 2019-03-22 08:23 | Outpatient (CLI) | payer MEDICARE, BC ==
[2018-11-15 16:48] VITALS: BMI 21.9
[~2019-03-22 08:23] MED LIST changes: +NITROSTAT0.4 MG SL; +RANEXA500 MG PO
== END | disposition home or self-care (01) ==
LOC: D.US 08:23
PROVIDERS: ATTEND Family Medicine
DX: R10.10 Upper abdominal pain, unspecified (principal)

== ENCOUNTER → 2019-03-30 12:40 | Outpatient (CLI) | payer MEDICARE, BC ==
[2018-11-15 16:48] VITALS: BMI 21.9
== END | disposition home or self-care (01) ==
LOC: D.NM 12:40
PROVIDERS: ATTEND Family Medicine
DX: R10.9 Unspecified abdominal pain (principal)

== ENCOUNTER → 2019-12-07 10:05 | Outpatient (CLI) | payer MEDICARE, BC ==
[2018-11-15 16:48] VITALS: BMI 21.9
== END | disposition home or self-care (01) ==
LOC: D.HCCARDIO 10:05
PROVIDERS: ATTEND Internal Medicine Cardiovascular Disease
DX: I25.10 Atherosclerotic heart disease of native coronary artery without angina pectoris (principal)

== ENCOUNTER → 2020-04-05 13:59 | Outpatient (CLI) | payer MEDICARE, BC ==
[2019-12-21 07:55] VITALS: BMI 24.0
[~2020-04-05 13:59] MED LIST changes: +BUSPAR10 MG PO; +PROTONIX40 MG PO; +ZOFRAN4 MG PO
== END | disposition home or self-care (01) ==
LOC: D.CT 13:59
PROVIDERS: ATTEND Family Medicine
DX: R10.9 Unspecified abdominal pain (principal)

== ENCOUNTER → 2020-04-15 08:52 | Outpatient (CLI) | payer MEDICARE, BC ==
[2019-12-21 07:55] VITALS: BMI 24.0
== END | disposition home or self-care (01) ==
LOC: D.MRI 08:52
PROVIDERS: ATTEND Family Medicine
DX: K76.9 Liver disease, unspecified (principal)